=== PATIENT | male | born 1960 | race Native Hawaiian/Other Pacific Islander ===

== ENCOUNTER 2022-06-25 05:23 | Day surgery (SDC) | payer OTHER ==
[2022-06-25] VITALS (11 sets, daily range): BP systolic 110–156; BP diastolic 64–86; PULSE 51–84; TEMP 97.4–98.5
[~2022-06-25] VITALS: Ht 167.6 cm; Wt 73.0 kg
[~2022-06-25 05:23] MED LIST: MULTIPLE VITAMI1 CAP PO; OMEGA-31 SGL PO; VITAMIN C PUR1000 MG PO; VITAMIN E100 I3 PO
[2022-06-25] MEDS ORDERED: PROZAC 10MG10 MG PO (06:02)
--- NOTE | 2022-06-25 11:10 | NUR ---
PATIENT IS ORIENTED BUT DROWSY. VSS. DENIES PAIN OR NAUSEA BUT DOES C/O OF FEELING LIKE HE HAS THE URGE TO VOID. MANE TO DD WITH SMALL AMOUNTS OF DARK BLOODY URINE, NO CLOTS NOTED. IV FLUIDS INFUSING VIA PUMP INTO LEFT FORARM IV. ABD LAP SITES X6 ARE WELL APPROXIMATED WITH GLUED CLOSURE. HEAD TO TOE ASSESSMENT COMPLETE. SCD'S TO BLE. PATIENT AND FAMILY ORIENTED TO ROOM. CALL LIGHT IN REACH.
--- NOTE | 2022-06-25 14:35 | NUR ---
PATIENT SITTING UP IN BED AND REPORTS HE IS FEELING MUCH BETTER NOW. PATIENT WANTS TO STAY AHEAD OF THE PAIN, GAVE PRN ROXICODONE, SEE MAR. PATIENT TOLERATING CLEARS WELL AND ASKING TO ADVANCE DIET, SEE ORDERS.
--- NOTE | 2022-06-25 23:37 | NUR ---
Shift assessment performed. Patient reports no pain and discomfort. Urine is blood-tinged in his torres. He has 6 lap sites, 5 open to air and 1 with a bandaid as a dressing. He is on room air and is compliant with his incentive spirometry. Bed is in lowest position and call light within reach.
[2022-06-26 03:30] VITALS: BP 103/60; PULSE 67; TEMP 98.6
--- NOTE | 2022-06-26 05:48 | NUR ---
Pt has done well throughout the night. He has had minimal to no pain. He has decreased hematuria and is having adequate urine output. He is passing flatus but no BM in the night.
[2022-06-26 07:04] LABS: HEMOGLOBIN 11.5 g/dl (13.5-18.0)
[2022-06-26 07:09] LABS: HEMATOCRIT 33.9 % (42.0-52.0)
[2022-06-26 07:14] LABS: CREATININE, serum 0.88 mg/dL (0.72-1.25)
[2022-06-26 08:00] VITALS: BP 128/66; PULSE 69; TEMP 98.9
--- NOTE | 2022-06-26 08:22 | NUR ---
Patient stand by assist up to chair, steady on his feet, denies nausea or dizzyness. Breakfast tray ordered. Minimal complaints of pain, just discomfort from torres. rounded this am, discharge orders obtained, plan for discharge this afternoon. Torres to DD with peach tinged output, educations printouts given to prepare for discharge, hands on education to be given when arrives as she will be assisting with foleys cares. Iv to Int. Abdomen soft reports positive flatus, robotic lap sites x6, open to air. Will monitor
--- NOTE | 2022-06-26 10:47 | NUR ---
SW met with patient to complete intake. Patient states that he lives in [facility] with his Son [phone]. Patient states that he does not use DME, is independent with ADL's, and does not utilize HH services at this time. PCP is Dr. Canales, and phamacy is [facility]. Patient states that his has been appointed as his DPOA/HC. Patient plans to return to his home upon DC. Patient had no further questions comments nor concerns and states that staff have treated him well. SW will continue to follow. DC plan: home
--- NOTE | 2022-06-26 11:52 | NUR ---
Patient ready for discharge. His here to take him home. Torres educations given to patient. He read through paperwork & asked appropriate questions. He was able to demonstrate leg bag. Wearing leg bag home. He cleansed torres site independently. We reviewed diet & activity restrictions. Incisions cares & signs and syptoms to call provided. Patient to call for follow up appt. Patient ambulated out with all belongings. His taking him home.
== END 2022-06-26 12:02 | disposition home or self-care (01) ==
LOC: SDCO 05:23 → SURG 11:10 → SDCO 06-26 12:02
PROVIDERS: Urology
DX: C61 Malignant neoplasm of prostate (principal); G47.33 Obstructive sleep apnea (adult) (pediatric); Z99.81 Dependence on supplemental oxygen
CPT/HCPCS: OP; A4314; J0690; J1100; J1885; J2405; J2704; J3010; J7120